=== PATIENT | female | born 1955 | race Caucasian/White ===

== ENCOUNTER 2025-01-07 10:43 | Outpatient (CLI) | payer MEDICARE, OTHER ==
--- NOTE | 2025-01-07 11:48 | RADIOLOGY REPORT ---
INDICATION: CHRONIC VIRAL HEPATITIS C TECHNIQUE: Multiple real-time sonographic images were obtained of the right upper quadrant. COMPARISON: None FINDINGS: The liver demonstrates coarsened echotexture without focal mass lesions. The liver measures 16 cm. There is no intrahepatic or extrahepatic ductal dilatation. The common duct measures 3 mm. Possible small gallstones versus gallbladder sludge. Gallbladder polyp measuring 0.6 cm. The gallblad rao wall measures 2 mm and is within normal limits. The right kidney measures 9.0 cm. The right kidney is normal in contour, size, and shape. The echog enicity is normal. There is no hydronephrosis. The pancreas is not well visualized due to overlying bowel gas. IMPRESSION: Coarsened liver echotexture suggestive of chronic liver disease. Gallbladder polyp measuring 0.6 cm. Possible small gallstones versus gallbladder sludge. FOLLOW UP RECOMMENDATIONS: Extremely low-risk polyps (pedunculated [id number]-wall or thin stalk): <9 mm: no follow-up (FU) 10-14 mm: FU at 6, 12 and 24 months > 15 mm: surgical consult Low-risk polyps (pedunculated with a thick or wide stalk, or sessile): < 6 mm: no follow-up 7-9 mm follow-up ultrasound at 12 months 10-14 mm: follow-up ultrasound at 6, 12, 24, and 36 months vs surgical consult > 15 mm: surgical consult Intermediate risk (focal wall-thickening >4mm adjacent to polyp): < 6 mm: FU US at 6, 12, 24, 36 months vs surgical consult > 7 mm: surgical consult Zachery Acevedo, Namrata C, Brando Ruano et al. Management of Incidentally Detected Gallbladder Polyps: Society of Radiologists in Ultrasound Consensus Conference Recommendations. Radiology. 2021;:[id number].
== END 2025-01-07 23:59 | disposition home or self-care (01) ==
LOC: RAD 10:43
PROVIDERS: ATTEND Preventive Medicine Public Health & General Preventive Medicine
DX: K82.4 Cholesterolosis of gallbladder (principal); B18.2 Chronic viral hepatitis C
CPT/HCPCS: 76700

== ENCOUNTER 2025-06-17 08:39 | Outpatient (CLI) | payer MEDICARE, OTHER ==
--- NOTE | 2025-06-17 10:02 | RADIOLOGY REPORT ---
INDICATION: PERSONAL HISTORY OF OTHER INFECTIOUS AND PARASITIC TECHNIQUE: Multiple real-time sonographic images were obtained of the right upper quadrant. COMPARISON: US ULTRASOUND OF ABDOMEN on DOS: 01/07/25 FINDINGS: The liver demonstrates homogeneous echotexture without focal mass lesions. The liver measures 16.4 cm. Left hepatic lobe cyst measures 1.1 cm. There is no intrahepatic or extrahepatic ductal dilatation. The common duct measures 0.3 cm. Cholelithiasis. The gallbladder wall measures 0.2 cm and is within normal limits. Gallbladder polyp measures 0.6 cm. The right kidney measures 8.7 cm. The right kidney is normal in contour, size, and shape. The echogenicity is normal. There is no hydronephrosis. The pancreas is not well visualized due to overlying bowel gas. IMPRESSION: Cholelithiasis. Gallbladder polyp measures 0.6 cm. Left hepatic lobe cyst measures 1.1 cm. FOLLOW UP RECOMMENDATIONS: Extremely low-risk polyps (pedunculated [id number]-wall or thin stalk): <9 mm: no follow-up (FU) 10-14 mm: FU at 6, 12 and 24 months > 15 mm: surgical consult Low-risk polyps (pedunculated with a thick or wide stalk, or sessile): < 6 mm: no follow-up 7-9 mm follow-up ultrasound at 12 months 10-14 mm: follow-up ultrasound at 6, 12, 24, and 36 months vs surgical consult > 15 mm: surgical consult Intermediate risk (focal wall-thickening >4mm adjacent to polyp): < 6 mm: FU US at 6, 12, 24, 36 months vs surgical consult > 7 mm: surgical consult Zachery Acevedo, Namrata C, Brando Ruano et al. Management of Incidentally Detected Gallbladder Polyps: Society of Radiologists in Ultrasound Consensus Conference Recommendations. Radiology. 2021;:[id number].
== END 2025-06-17 23:59 | disposition home or self-care (01) ==
LOC: RAD 08:39
PROVIDERS: ATTEND Nurse Practitioner Family
DX: K80.10 Calculus of gallbladder with chronic cholecystitis without obstruction (principal); Z86.19 Personal history of other infectious and parasitic diseases; K76.89 Other specified diseases of liver
CPT/HCPCS: 76700